=== PATIENT | male | born 1990 | race Asian ===

== ENCOUNTER 2018-01-21 23:51 | Emergency (ER) | payer OTHER ==
[~2018-01-21] VITALS: Ht 170.2 cm; Wt 54.4 kg
[2018-01-21 23:55] VITALS: Ht 170.2 cm; Wt 54.4 kg
[2018-01-22 00:48] VITALS: BP 132/93
== END 2018-01-22 00:45 | disposition home or self-care (01) ==
LOC: ED 23:51
DX: K08.89 Other specified disorders of teeth and supporting structures (principal)